=== PATIENT | male | born 1940 | race African-American/Black ===

== ENCOUNTER 2018-07-12 11:29 | Inpatient (IN) | payer OTHER ==
[~2018-07-12] VITALS: Ht 170.2 cm; Wt 59.4 kg
[2018-07-12 11:32] VITALS: Ht 170.2 cm; Wt 59.4 kg
[2018-07-12 14:34] LABS: UA SPECIFIC GRAVITY 1.025 (1.005-1.035); microscopic required? YES; urine erythrocyte NEGATIVE (NEGATIVE)
[2018-07-12 15:14] LABS: BASOPHIL % 0.2 % (0-2); PLATELET COUNT 170 x10^3mcL (130-400); RED CELL DISTRIBUTION WIDTH 15.8 % (11.5-14.5)
[2018-07-12 15:23] LABS: CALCIUM 9.1 mg/dL (8.5-10.1); CARBON DIOXIDE 29.7 mmol/L (21-32); CHLORIDE SERUM 102 mmol/L (98-107); CREATININE SERUM 1.1 mg/dL (0.7-1.3); GLUCOSE SERUM 159 mg/dL (74-106); POTASSIUM SERUM 3.8 mmol/L (3.5-5.1); SODIUM SERUM 138 mmol/L (136-145)
[2018-07-12 15:27] LABS: ALBUMIN 3.8 g/dL (3.4-5.0); ALKALINE PHOSPHATASE 73 U/L (46-116); ALT/SGPT 27 U/L (16-63); AST/SGOT 33 U/L (15-37); BILIRUBIN TOTAL 0.6 mg/dL (0.20-1.00); LIPASE 101 IU/L (73-393); TOTAL PROTEIN, SERUM 8.2 g/dL (6.4-8.2)
[2018-07-12 18:08] LABS: PHOSPHOROUS 2.9 mg/dL (2.5-4.9)
[2018-07-12 18:10] LABS: CHOLESTEROL/HDL RATIO 1.9
[2018-07-12 18:20] LABS: T3 TOTAL 1.03 ng/mL
[2018-07-12 18:31] LABS: FREE T4 1.29 ng/dL (0.76-1.46); FREE THYROXINE INDEX 4.4 ug/dL (1.4-4.5); T4(THYROXINE) 12.5 ug/dL (4.7-13.3)
[2018-07-12 19:54] VITALS: BP 149/86
[2018-07-13 06:10] VITALS: BP 94/57
[2018-07-13 08:25] LABS: CALCIUM 8.4 mg/dL (8.5-10.1); CHLORIDE SERUM 107 mmol/L (98-107); GLUCOSE SERUM 99 mg/dL (74-106); POTASSIUM SERUM 4.4 mmol/L (3.5-5.1); SODIUM SERUM 138 mmol/L (136-145)
[2018-07-13 09:36] LABS: BASOPHIL % 0.2 % (0-2); PLATELET COUNT 138 x10^3mcL (130-400)
[2018-07-13 09:43] LABS: RED CELL DISTRIBUTION WIDTH 15.8 % (11.5-14.5)
[2018-07-13 10:03] VITALS: BP 100/63
[2018-07-13 11:55] VITALS: BP 100/63
== END 2018-07-13 12:19 | disposition home or self-care (01) | DRG 438 ==
LOC: ED 11:29 → DU 17:31
PROVIDERS: Emergency Medicine; Family Medicine
DX: K85.90 Acute pancreatitis without necrosis or infection, unspecified (principal); N17.0 Acute kidney failure with tubular necrosis; I10 Essential (primary) hypertension; R80.9 Proteinuria, unspecified; Z68.21 Body mass index [BMI] 21.0-21.9, adult
CPT/HCPCS: 83880; 84439; C9113; G0480; J2405; J2765; J3230; J7030; Q0092; Q0161